=== PATIENT | female | born 1980 ===

== ENCOUNTER → 2020-04-09 07:49 | Outpatient (BNVA) | payer OTHER, SELFPAY | PROVIDERS: PCP Internal Medicine; Referring Provider Internal Medicine; Visit Provider Surgery | DX: Z76.89 Persons encountering health services in other specified circumstances (principal) ==

== ENCOUNTER 2020-04-17 08:21 | Outpatient (REF) | payer OTHER, SELFPAY ==
--- NOTE | 2020-04-17 09:48 | ECG_ITS ---
Test Reason : MORBID OBESITY Blood Pressure : / mmHG Vent. Rate : 088 BPM Atrial Rate : 088 BPM P-R Int : 152 ms QRS Dur : 076 ms QT Int : 366 ms P-R-T Axes : -07 042 009 degrees QTc Int : 442 ms Normal sinus rhythm Normal ECG No previous ECGs available Referred By: Dean Mendez Electronically Signed By:ROD ANAND MD
--- NOTE | 2020-04-17 10:09 | XR_ITS ---
EXAMINATION: XR CHEST CLINICAL INFORMATION: Morbid obesity. COMPARISON: None TECHNIQUE: 2 views of the chest were obtained. FINDINGS: No significant abnormality is noted involving the heart, lungs, mediastinum, bony thorax or soft tissues. XR/XR chest 2V IMPRESSION: No acute cardiopulmonary process.
[2020-04-17 10:13] LABS: MANUAL DIFF FLAG NO
[2020-04-17 10:22] LABS: Basophils Percent Auto 0.3 % (0-2); Eosinophils Absolute Auto 0.2 X10*3/uL (0.0-0.4); Eosinophils Percent Auto 1.9 % (0-4); Hematocrit 34.9 % (37-47); Hemoglobin 11.3 g/dl (12.0-16.0); Imm Gran Abs Auto 0.02 X10*3/uL (0.00-0.03); Imm Gran Pct Auto 0.3 % (0.0-0.4); Lymphocytes Absolute Auto 2.7 X10*3/uL (1.2-4.9); Lymphocytes Percent Auto 33.6 % (20-40); Mean Corpuscular HGB Conc 32.4 g/dl (31.0-35.0); Mean Corpuscular Volume 83.5 fL (80-98); Mean Platelet Volume 9.7 fL (9.4-12.3); Monocytes Absolute Auto 0.5 X10*3/uL (0.1-1.2); Monocytes Percent Auto 5.9 % (2-11); Neutrophils Absolute Auto 4.6 X10*3/uL (2.0-8.3); Platelet Count 312 X10*3/uL (160-400); Red Blood Count 4.18 X10*6/uL (4.20-5.50); Red Cell Distribution Width 14.9 % (11.0-16.0); White Blood Count 7.9 X10*3/uL (4.8-10.8)
[2020-04-17 10:58] LABS: Alanine Aminotransferase 17 U/L (0-31); Albumin Level 3.9 g/dL (3.5-5.0); Alkaline Phosphatase 77 U/L (39-117); Anion Gap 13 (12-20); Aspartate Amino Transferase 14 U/L (5-31); Bilirubin Total 0.5 mg/dL (0.0-1.0); Blood Urea Nitrogen 13 mg/dL (9-16); C Reactive Protein 5.28 mg/dL (< or = 0.50); Calcium 8.8 mg/dL (8.4-10.2); Carbon Dioxide 27 mmol/L (22-29); Chloride 101 mmol/L (96-108); Cholesterol 188 mg/dL; Estimated Glomerular Filt Rate > 60; Glucose Random 95 mg/dL (60-115); HDL Cholesterol 55 mg/dL; LDL Cholesterol Calculated 119 mg/dl; Potassium 3.7 mmol/l (3.3-5.1); Sodium 137 mmol/L (135-145); Triglycerides 73 mg/dL
[2020-04-17 11:08] LABS: Ferritin 50 ng/mL (10-250); TSH reflex Free T4 1.66 mIU/mL (0.32-4.0)
[2020-04-17 11:28] LABS: Estimated Average Glucose 123 mg/dL; Hemoglobin A1c % 5.9 %
[2020-04-17 12:33] LABS: Folate 6.5 ng/mL (> or = 4.0); Vitamin B12 234 pg/mL (200-900)
[2020-04-18 13:56] LABS: H Pylori Breath Test NOT DETECTED (NOT DETECTED)
[2020-04-20 19:11] LABS: Insulin Level Total 32.9 uIU/mL
[2020-04-21 04:17] LABS: Zinc 65 mcg/dL (60-130)
[2020-04-23 10:07] LABS: Vitamin A 28 mcg/dL (38-98)
[2020-04-23 11:42] LABS: Vitamin B1 8 nmol/L (8-30)
== END 2020-04-17 08:22 | disposition home or self-care (01) ==
LOC: HO.LAB 08:21
PROVIDERS: PCP Internal Medicine; Referring Provider Surgery; Visit Provider Physician Assistant
DX: R07.9 Chest pain, unspecified (principal); K21.9 Gastro-esophageal reflux disease without esophagitis; I10 Essential (primary) hypertension; E66.01 Morbid (severe) obesity due to excess calories
CPT/HCPCS: 36415; 71046; 80053; 80061; 82607; 82728; 82746; 83013; 83036; 83525; 84425; 84443; 84590; 84630; 85025; 86140; 93005

== ENCOUNTER 2020-04-27 08:49 | Outpatient (REF) | payer OTHER, SELFPAY ==
--- NOTE | 2020-04-27 08:51 | US_ITS ---
EXAMINATION: US COMPLETE ABDOMEN WITH LIVER ELASTOGRAPHY CLINICAL INFORMATION: Obesity COMPARISON: None. TECHNIQUE: Real-time imaging of the abdominal viscera. Noninvasive ultrasound liver fibrosis assessment is performed using Ria ElastPQ point quantification shear wave elastography (pSWE) with a 5 MHz transducer. Multiple elastography samples are obtained. FINDINGS: PANCREAS: The visualized pancreatic head and body are normal in appearance. The remainder of the pancreas is obscured from visualization by the overlying bowel gas. ABDOMINAL AORTA: The proximal, middle, and distal aortic segments are normal in caliber. INFERIOR VENA CAVA: Visualized portions are normal. LIVER: Liver echotexture is increased. The liver is normal in contour. No focal liver lesion or biliary ductal dilatation. The liver is enlarged. The right lobe measures 18 cm in length. The left lobe measures 14 cm in length. The main portal vein is patent with appropriate hepatopedal flow. Shear wave elastography provides a median stiffness of 1.5 m/s (reference: normal median stiffness is 0.81 - 1.22 m/s). The IQR/median stiffness to assess sampling precision is 0.4 (reference: optimal IQR/median stiffness is under 0.3). GALLBLADDER: Normal. The gallbladder is physiologically distended without evidence of stones, sludge, polyps, wall thickening or pericholecystic fluid. COMMON BILE DUCT: Normal in caliber measuring 0.7 cm in diameter. RIGHT KIDNEY: Normal. No hydronephrosis. No renal calculi or focal parenchymal lesions. The kidney measures 11.2 cm in maximum dimension. LEFT KIDNEY: Normal. No hydronephrosis. No renal calculi or focal parenchymal lesions. The kidney measures 10.5 cm in maximum dimension. SPLEEN: Normal. The spleen measures 9.3 cm in maximum dimension. FREE FLUID: None. US/US abdomen comp w elastography IMPRESSION: 1. Impression: Enlarged echogenic liver probably representing fatty infiltration. Limited visualization of the tail the pancreas. 2. Elastography: Metavir score F2 to F3 suggestive of moderate to increased risk of developing liver fibrosis.
--- NOTE | 2020-04-27 08:52 | FL_ITS ---
EXAMINATION: XR GI SERIES CLINICAL INFORMATION: Obesity. Gastroesophageal reflux disease. COMPARISON: None TECHNIQUE: Upper GI was performed using thin and thick barium and effervescent granules. FINDINGS: Esophageal motility is normal. There is a small sliding-type hiatal hernia. No gastroesophageal reflux is seen. The stomach and duodenum are normal-appearing. No fold thickening, ulceration, mass or stricture is seen. FLUOROSCOPY TIME: 1.1 minutes DOSE AREA PRODUCT: 14 sheets per centimeter squared. 28 saved fluoroscopic images. FL/FL upper GI series IMPRESSION: Small sliding-type hiatal hernia otherwise unremarkable exam.
== END 2020-04-27 08:50 | disposition home or self-care (01) ==
LOC: HO.US 08:49
PROVIDERS: PCP Internal Medicine; Visit Provider Surgery
DX: Z01.818 Encounter for other preprocedural examination (principal); E66.01 Morbid (severe) obesity due to excess calories; K21.9 Gastro-esophageal reflux disease without esophagitis; I10 Essential (primary) hypertension; R07.9 Chest pain, unspecified
CPT/HCPCS: 74240; 76705; 76981

== ENCOUNTER → 2020-04-29 08:33 | Outpatient (REF) | payer OTHER, SELFPAY ==
--- NOTE | 2020-04-29 08:37 | CA_ITS ---
Transthoracic Echocardiogram Patient (Last, First, Middle): White, [place], Gender: Female Date of : 1980 Age: 40 Procedure Date: 04/29/2020 Procedure Type: Transthoracic Echocardiogram Location: OP Height: 160.02 cm Weight: 165.56 kg BSA: 2.50 m2 Heart Rate: bpm BP: 120 / 72 mmHg Protective Signal Installer Helper: SOFIA Conte MD: Dean Mendez MD Devulcanizer Loader: Mani Naqvi MD Symptoms: E66.01 - Morbid (severe) obesity due to excess calories Conclusions: - Essentially normal study Findings Left Ventricle Normal left ventricular size, thickness, and systolic function. The visually estimated ejection fraction is between 60-65%. Diastolic function is normal for age. Right Ventricle Normal right ventricular cavity size and systolic function. Atria Both atria are normal in size. There is lipomatous hypertrophy of the interatrial septum. There is no evidence of interatrial shunt. Aortic Valve Normal aortic valve structure and function. There is no aortic valve stenosis. There is no aortic valve regurgitation. Mitral Valve Normal mitral valve structure and function. There is trace mitral valve regurgitation. There is no mitral valve stenosis. Pulmonic Valve The pulmonic valve is likely normal. Tricuspid Valve Normal tricuspid valve structure. There is trace tricuspid valve regurgitation. The right ventricular systolic pressure is normal. The right ventricular systolic pressure is 30 mmHg. Normal right atrial pressure. There is no evidence of pulmonary hypertension. Great Vessels All visible segments of the aorta are normal in size. The pulmonary artery was not well visualized. Venous The inferior vena cava is normal in size and collapses greater than 50% with inspiration. Pericardium/Pleural There is no evidence of pericardial effusion. Prior Study Comparison No prior study available for comparison. Measurements 2D Linear Measurements RVIDd: 3.05 RVIDd Index: 1.22 IVSd: 1.03 0.6-0.9/0.6-1.0 cm LVIDd: 4.75 3.9-5.3/4.2-5.9 cm LVIDd Index: 1.90 2.4-3.2/2.2-3.1 cm/m2 LVIDs: 3.09 2.0-3.6 cm LVPWd: 1.32 0.7-1.1 cm Ao Root: 2.70 2.1-3.5 cm LA Diam: 4.00 2.7-3.8/3.0-4.0 cm LAIDs Index: 1.60 1.5-2.3 cm/m2 LV Mass: 260.77 67-162/88-224 g LV Mass Index: 104.31 43-95/49-115 g/m2 LVOT Diam: 2.10 3.0+(-)1.3 cm 2D Systolic Function EF 4C: 40.10 >55% EF 2C: 78.30 >55% EF BiP: 66.90 >55% Mitral Valve MV Pk E: 0.81 MV PK A: 0.68 MV Decel Time: 157.00 E/A: 1.20 E'Lateral: 10.20 E'Medial: 7.51 E/E' Med: 10.80 E/E' Lat: 8.00 Decel Amelia: 5.17 Aortic Valve AoV Pk Mauricio: 1.52 AoV Mn Mauricio: 1.26 AoV VTI: 0.31 AoV Pk Grad: 9.00 Aov Mn Grad: 7.00 MARY Cont.VTI: 2.87 LVOT LVOT Pk Mauricio: 1.38 LVOT Mn Mauricio: 0.94 LVOT VTI: 0.26 LVOT Pk Grad: 8.00 LVOT Mn Grad: 4.00 LVOT Diam: 2.10 LVOT Area: 3.46 Diastolic Function MV Pk E: 0.81 MV Pk A: 0.68 E/A: 1.20 E'Medial: 7.51 E/E' Med: 10.80 E' Laterial: 10.20 E/E' Lat: 8.00 Tricuspid Valve TR Pk Mauricio: 2.36 TR Pk Grad: 22.00 RA Press: 8.00 RVSP: 30.00 Great Vessels Aorta Ao Root-2D: 2.70 2.0-3.7 cm Ao Asc: 3.20 2.1-3.4 cm Ao Arch: 2.60 Updated in Other Vendor System with Status of Final Mani Naqvi MD electronically signed on 04/29/2020 1:48:31 PM with status of Final
--- NOTE | 2020-04-29 09:30 | CA_ITS ---
Acquisition Time: 2020-04-29 09:42:35 Total Exercise Time: 00:05:00 Test Indications: PREOP Medications: SEE CHART Protocol: MICAH Max HR: 181 BPM 101% of Pred: 179 BPM Max BP: 172/086 mmHG Max Work Load: 5.7 METS Exercise stress test using Micah protocol. Total 5 min, METS 5.7 MHR up to 101%. Last minute of the test incline decresed as pt was getting SOB. Denies any anginal sx. EKG without any arrhythmias, no ischemic changes. Normotensive response to exercise. Test reviewed with Dr. Mcdaniel. Referred By: Dean Mendez Overread By: Shelbi Nash
== END ==
LOC: HO.CARD 08:33
PROVIDERS: PCP Internal Medicine; Visit Provider Surgery
DX: Z01.818 Encounter for other preprocedural examination (principal); R06.02 Shortness of breath; I10 Essential (primary) hypertension; R07.9 Chest pain, unspecified; E66.01 Morbid (severe) obesity due to excess calories; K21.9 Gastro-esophageal reflux disease without esophagitis; K44.9 Diaphragmatic hernia without obstruction or gangrene; E16.1 Other hypoglycemia; K74.00 Hepatic fibrosis, unspecified
CPT/HCPCS: 93017; 93306

== ENCOUNTER → 2020-05-27 07:41 | Outpatient (BNVA) | payer OTHER, SELFPAY | PROVIDERS: PCP Internal Medicine; Visit Provider Surgery | DX: Z76.89 Persons encountering health services in other specified circumstances (principal) ==

== ENCOUNTER → 2020-06-02 08:17 | Outpatient (BNVA) | payer OTHER, SELFPAY | PROVIDERS: PCP Internal Medicine; Visit Provider Dietitian, Registered | DX: Z76.89 Persons encountering health services in other specified circumstances (principal) ==

== ENCOUNTER → 2020-06-26 08:12 | Outpatient (BNVA) | payer OTHER, SELFPAY | PROVIDERS: PCP Internal Medicine; Visit Provider Surgery ==

== ENCOUNTER → 2020-07-13 07:25 | Outpatient (BNVA) | payer OTHER, SELFPAY | PROVIDERS: PCP Internal Medicine; Visit Provider Surgery ==